=== PATIENT | male | born 1985 | race Caucasian/White ===

== ENCOUNTER → 2017-05-31 | Outpatient (RCR) | payer BC ==
[~2017-05-31] MED LIST: TIZANIDINE PO; VICOPROFEN 2001 EACH PO
== END ==
LOC: PT 05-24 15:27
PROVIDERS: ATTEND Neurological Surgery
DX: M51.16 Intervertebral disc disorders with radiculopathy, lumbar region (principal); M53.86 Other specified dorsopathies, lumbar region; M62.81 Muscle weakness (generalized)

== ENCOUNTER → 2017-06-28 | Outpatient (RCR) | payer BC | LOC: PT 06-14 13:07 | PROVIDERS: ATTEND Neurological Surgery | DX: M51.16 Intervertebral disc disorders with radiculopathy, lumbar region (principal); M53.86 Other specified dorsopathies, lumbar region; M62.81 Muscle weakness (generalized) | CPT/HCPCS: 97139 ==

== ENCOUNTER 2017-06-30 14:36 | Outpatient (RCR) | payer BC | END 2017-07-29 | LOC: PT 14:36 | PROVIDERS: ATTEND Neurological Surgery | DX: M51.16 Intervertebral disc disorders with radiculopathy, lumbar region (principal) ==